=== PATIENT | male | born 1935 | race Caucasian/White ===

== ENCOUNTER 2017-11-01 09:57 | Emergency (ER) | payer OTHER ==
[~2017-11-01] VITALS: Ht 182.9 cm; Wt 94.3 kg
--- NOTE | ~2017-11-01 | EKG ---
[place] [address] [address] [facility] [place] [address] ELECTROCARDIOGRAM REPORT Name: ALYSSA CAMPOS Room #: REG MARSHA Charles#: [id number] Admission: 11/01/17 Attend Phys: Discharge: Date of : 33 Report #: [id number] THIS REPORT FOR: //name// [facility] ED Test Date: 2017-11-01 Test Time: 10:07:25 Pat Name: ALYSSA CAMPOS Department: Room: Gender: M [employer]: RELL : 1935 Requested By: Darren Gale Order Number: [id number] MD: Freddie Mejia Measurements Intervals [place] Rate: 110 P: NV: QRS: -69 QRSD: 174 T: 61 QT: 426 QTc: 577 Interpretive Statements Atrial fibrillation Ventricular premature complex RBBB and LAFB No previous ECG available for comparison Electronically Signed On 11-01-2017 11:27:05 ELECTRICAL LINEMAN by Freddie Mejia [email or web address] <ELECTRONICALLY SIGNED> By: Freddie Mejia MD 11/01/17 1127 1007 [facility] Freddie Mejia MD /EPI
[2017-11-01] MEDS ORDERED: COUMADIN 1MG TAB1 M1 PO (10:10)
[2017-11-01 10:30] LABS: HEMATOCRIT 26.9 % (42.0-52.0); HEMOGLOBIN 9.1 gm/dL (14.0-18.0); MCH 30.1 pg (26.0-34.0); MCHC 33.9 g/dL (28.0-37.0); MCV 88.8 fL (80.0-100.0); RBC 3.03 mil/uL (4.50-6.00); RDW 20.2 % (10.5-14.5); WBC 9.3 thou/uL (4.0-11.0)
[2017-11-01 10:39] LABS: APTT 43.1 Seconds (24.5-32.8); INR 2.5; PROTIME 25.6 Seconds (9.3-11.4)
[2017-11-01 10:58] LABS: CALCIUM 9.2 mg/dL (8.5-10.1); CREATININE 2.1 mg/dL (0.7-1.3); POTASSIUM 3.3 mmol/L (3.5-5.1)
[2017-11-01 11:06] LABS: TROPONIN-I 0.08 ng/mL (<0.06)
[2017-11-01] MEDS ORDERED: ASPIR 8181 MG PO (13:47)
[2017-11-01] MEDS ORDERED: BETAMETHASONE D15 G1 TOP (13:49)
[2017-11-01] MEDS ORDERED: ZYRTEC10 M4 PO (13:50)
[2017-11-01] MEDS ORDERED: BUMETANIDE0.25 MG/1 PO (13:50)
[2017-11-01] MEDS ORDERED: CLOTRIMAZOLE 1%15 G1 TOP (13:51)
[2017-11-01] MEDS ORDERED: BENADRYL25 MG PO (13:52)
[2017-11-01] MEDS ORDERED: COENZYME Q10100 MG PO (13:52)
[2017-11-01] MEDS ORDERED: IRON325 PO (13:53)
[2017-11-01] MEDS ORDERED: [UNRECOGNIZED DRUG - OTHER] TOP (13:53)
[2017-11-01] MEDS ORDERED: FINASTERIDE5 MG PO (13:56)
[2017-11-01] MEDS ORDERED: FISH OIL-OMEGA1 EACH PO (13:57)
[2017-11-01] MEDS ORDERED: FOLIC ACID1 MG PO (13:58)
[2017-11-01] MEDS ORDERED: ZAROXOLYN 5MG TA5 MG PO (13:59)
[2017-11-01] MEDS ORDERED: CENTRUM SILVER1 EAC4 PO (13:59)
[2017-11-01] MEDS ORDERED: RAPAFLO8 MG PO (14:03)
[2017-11-01] MEDS ORDERED: ALDACTONE25 MG PO (14:03)
[2017-11-01] MEDS ORDERED: COUMADIN 5 MG TA5 M1 PO (14:04)
== END 2017-11-01 17:06 | disposition short-term general hospital (02) ==
LOC: ER 09:57
PROVIDERS: Emergency Medicine
DX: I48.91 Unspecified atrial fibrillation (principal); R55 Syncope and collapse; Z88.1 Allergy status to other antibiotic agents